=== PATIENT | female | born 1980 | race Caucasian/White ===

== ENCOUNTER 2022-03-03 13:00 | Inpatient (IN) | payer OTHER ==
[~2022-03-03] VITALS: Ht 162.6 cm; Wt 79.4 kg
[2022-03-13] MEDS ORDERED: PRENATAL CAPLE1 EAC1 PO (10:15)
== END 2022-03-15 11:46 | disposition home or self-care (01) | DRG 768 ==
LOC: EDSTATUS 03-06 13:30 → OB/GYN 03-12 13:30 → O/R 03-13 05:38 → LDR 03-13 05:38 → O/R 03-13 09:33 → OB/GYN 03-13 10:01 → SURG 03-13 13:30 → OB/GYN 03-15 11:46
PROVIDERS: ADMIT Obstetrics & Gynecology; ATTEND Obstetrics & Gynecology
PROC: 0UQC7ZZ Repair Cervix, Via Natural or Artificial Opening (ICD-10-PCS; 2022-03-13)
PROC: 0UQG7ZZ Repair Vagina, Via Natural or Artificial Opening (ICD-10-PCS; 2022-03-13)
PROC: 4A1HXCZ Monitoring of Products of Conception, Cardiac Rate, External Approach (ICD-10-PCS; 2022-03-13)
PROC: 10E0XZZ Delivery of Products of Conception, External Approach (ICD-10-PCS; principal; 2022-03-13 09:45)
DX: O71.3 Obstetric laceration of cervix (principal); Z37.0 Single live birth; O71.4 Obstetric high vaginal laceration alone; O72.1 Other immediate postpartum hemorrhage; Z3A.39 39 weeks gestation of pregnancy; Z20.822 Contact with and (suspected) exposure to COVID-19